=== PATIENT | female | born 1945 | race Caucasian/White ===

== ENCOUNTER → 2016-07-12 | Outpatient (CLI) | payer MEDICARE, OTHER ==
[~2016-07-12] MED LIST: CATHETER FLUSH 10 ML SYR IV PRN; REGADENOSON 0.4 MG/5 ML SYR (LEXISCAN) IV ONE
[2016-07-12 09:36] VITALS: BP 161/82
[2016-07-12 09:42] VITALS: BP 146/71
--- NOTE | 2016-07-14 09:09 | STRESS TEST ---
DATE OF SERVICE: 07/12/2016 RESTING AND POST REGADENOSON TECHNETIUM 99M TETROFOSMIN SPECT CT IMAGING ORDERING PHYSICIAN: Franny Choi APRN PRIMARY PHYSICIAN: Dr. Samosn. OTHER PHYSICIAN: Dr. Quintero. CLINICAL DIAGNOSIS: Chest discomfort, hypertension. Baseline images were carried out after injection of 10.53 mCi of technetium-99m tetrofosmin. This was followed by 0.4 mg regadenoson and 29.9 mCi of technetium-99m tetrofosmin for stress imaging. The electrocardiogram showed sinus rhythm at baseline. The electrocardiogram did not change significantly with the regadenoson infusion. There was subtle nonspecific ST abnormality. Rare isolated premature contractions were seen. She tolerated the procedure well. Review of images at rest and following stress does not indicate any significant perfusion defects consistent with myocardial ischemia or infarction. Gated images show normal global left ventricular systolic function with normal regional wall motion. Left ventricular ejection fraction is calculated to be 84%. Left ventricular end-diastolic volume is 41 mL. TID is absent (1.02). CONCLUSIONS: 1. No evidence of any significant myocardial ischemia or infarction on this study. 2. Normal regional wall motion. 3. Normal global left ventricular systolic function with a calculated ejection fraction of 84%. 4. Normal left ventricular cavity size. Job ID: [id number] DocumentID: [id number] Dictated Date: 07/13/2016 10:59:03 Feed Mixer Date: 07/13/2016 14:41:04 Dictated By: NYDIA QUINTERO MD, MA, FACP, FACC,
== END ==
LOC: CARD 07:23
PROVIDERS: ATTEND Nurse Practitioner Family
DX: I10 Essential (primary) hypertension (principal); E78.4 Other hyperlipidemia; I35.0 Nonrheumatic aortic (valve) stenosis; R07.89 Other chest pain
CPT/HCPCS: 78452; 93017

== ENCOUNTER → 2016-07-16 | Outpatient (CLI) | payer MEDICARE, OTHER ==
--- NOTE | 2016-07-19 07:08 | ECHOCARDIOGRAPHY REPORT ---
DATE OF SERVICE: 07/16/2016 CLINICAL DIAGNOSES: Chest pain, aortic stenosis. ORDERING PHYSICIAN: Dr. Garcia. PRIMARY PHYSICIAN: Dr. Samson. MEASUREMENTS: Aortic root 3.2. Left atrium 3.3. LV diameter diastolic 4.7. IVS thickness, diastolic 0.7. LVPW thickness, diastolic 1. DESCRIPTION: Two-dimensional echocardiography shows normal global left ventricular systolic function with normal regional wall motion. Aortic, mitral and tricuspid valve leaflets show good leaflet excursion. There is no significant pericardial effusion. Doppler imaging did not show significant valvular regurgitation but showed only trivial tricuspid regurgitation was seen. Pulmonary artery systolic pressure is estimated at approximately 25 mmHg. Mitral inflow is consistent with grade 1 diastolic dysfunction of left ventricle. Peak pressure gradient across the aortic valve is approximately 11 mmHg and a mean gradient of 6.5 mmHg with a valve area of approximately 2 cm sq. Doppler imaging indicates trivial aortic regurgitation. There is no evidence of significant intracardiac shunt on this transthoracic echocardiographic study. Inferior vena cava appears to be of normal size and exhibits inspiratory collapse. CONCLUSIONS: 1. Normal global left ventricular systolic function with ejection fraction approximately 60%. 2. Aortic valve sclerosis without significant aortic stenosis. 3. Trivial tricuspid and aortic regurgitation. 4. Pulmonary artery systolic pressure is estimated to be approximately 25 mmHg. Job ID: [id number] DocumentID: [id number] Dictated Date: 07/18/2016 16:07:21 Mechanical Engineering Lecturer Date: 07/18/2016 20:35:19 Dictated By: NYDIA GARCIA MD, MA, FACP, FACC,
== END ==
LOC: CARD 13:48
PROVIDERS: ATTEND Nurse Practitioner Family
DX: R07.89 Other chest pain (principal); I10 Essential (primary) hypertension; E78.4 Other hyperlipidemia; I35.0 Nonrheumatic aortic (valve) stenosis
CPT/HCPCS: 93306

== ENCOUNTER → 2016-08-02 | Outpatient (CLI) | payer MEDICARE, OTHER ==
--- NOTE | 2016-08-02 11:51 | Diagnostic Imaging Report ---
EXAMINATION: Bilateral lower extremity duplex venous ultrasound. TECHNIQUE: DVT protocol. Multiple sonographic images with color Doppler and waveform interrogation were performed of the lower extremity veins, bilaterally, with compression and augmentation maneuvers. INDICATION: Bilateral leg swelling. FINDINGS: The lower extremity veins from the common femoral veins to below the knee veins were examined with normal color-flow, compressibility and normal waveform demonstrated. The great saphenous vein bilaterally is patent. IMPRESSION: No evidence of DVT in either lower extremity. Dictated by: Dictated on workstation # [id number]
== END ==
LOC: RAD 11:01
PROVIDERS: ATTEND Nurse Practitioner Family
DX: M79.89 Other specified soft tissue disorders (principal); L53.9 Erythematous condition, unspecified
CPT/HCPCS: 93970

== ENCOUNTER → 2018-03-04 | Outpatient (CLI) | payer MEDICARE, OTHER ==
--- NOTE | 2018-03-04 14:17 | Diagnostic Imaging Report ---
INDICATION: Routine screening. COMPARISON: 09/20/2016 and 01/11/2016. TECHNIQUE: 2D and 3D bilateral screening mammography was performed with CAD. FINDINGS: Both breasts are heterogeneously dense, limiting the sensitivity of mammography. Benign calcifications are scattered throughout both breasts. The fibronodular parenchymal pattern appears stable. No dominant mass or malignant appearing microcalcifications are seen. The axillae are unremarkable. IMPRESSION: No mammographic features suspicious for malignancy are identified. ACR BI-RADS Category 2: Benign findings. Result letter will be mailed to the patient. Note: At least 10% of breast cancer is not imaged by mammography. Dictated by: Dictated on workstation # [id number]
== END ==
LOC: RAD 10:54
PROVIDERS: ATTEND Nurse Practitioner Family
DX: Z12.31 Encounter for screening mammogram for malignant neoplasm of breast (principal)
CPT/HCPCS: 77067

== ENCOUNTER → 2019-03-17 | Outpatient (CLI) | payer MEDICARE, OTHER ==
--- NOTE | 2019-03-17 15:16 | Diagnostic Imaging Report ---
INDICATION: Postmenopausal state, screening for osteoporosis. COMPARISON: None. FINDINGS: AP Spine L1-L4: [BMD (g/cm2): 1.231] [T-Score: 0.3] [Z-Score: 1.3] [BMD Previous: NA] [BMD % Change: NA] LT Hip Neck: [BMD (g/cm2): 0.878] [T-Score: -1.2] [Z-Score: 0.2] LT Hip Total: [BMD (g/cm2):1.047] [T-Score:0.3] [Z-Score: 1.4] [BMD Previous: NA] [BMD % Change: NA] RT Hip Neck: [BMD (g/cm2):0.938] [T-Score:-0.7] [Z-Score:0.6] RT Hip Total: [BMD (g/cm2):1.050] [T-score:0.3] [Z-Score:1.4] [BMD Previous:NA] [BMD % Change:NA] *Indicates significant change from prior examination based on 95% confidence level. World Health Organization criteria for BMD interpretation classify patients as Normal (T-score at or above -1.0), Osteopenic (T-score between -1.0 and -2.5) or Osteoporotic (T-score at or below -2.5). LIMITATIONS AND MODIFICATION: None. FRACTURE RISK (FRAX SCORE): The ten year probability of (%): Major Osteoporotic Fracture: [9.3] Hip Fracture: [1.8] IMPRESSION: 1. Osteopenia (Low bone mass). 2. Baseline examination. 3. See below National Osteoporosis Foundation guidelines on when to potentially initiate pharmacologic therapy. Based on the National Osteoporosis Foundation Guidelines, pharmacologic treatment should be initiated in any of the following, unless clinical conditions suggest otherwise: * Any patient with prior fragility fracture of the hip or vertebrae. A spine fracture indicates 5X risk for subsequent spine fracture and 2X risk for subsequent hip fracture. * Osteoporosis (T-score <-2.5). * Postmenopausal women and men age 50 and older with low bone mass/osteopenia (T-score between -1.0 and -2.5) by DXA and 10-year major osteoporotic fracture greater than 20% or a 10-year probability of hip fracture greater than 3%. These fracture risks are supplied above in the FRAX score, if applicable. * Clinician judgment and/or patient preferences may indicate treatment for people with 10-year fracture probabilities above or below these levels. Dictated by: Dictated on workstation # [id number]
--- NOTE | 2019-03-17 16:15 | Diagnostic Imaging Report ---
Indication: Routine screening. Comparison is made with prior mammograms from 03/04/2018 and 01/21/2017. 2-D and 3-D bilateral screening mammography was performed with CAD. Both breasts remain heterogeneously dense, limiting the sensitivity of mammography. Fibronodular parenchymal pattern remains stable. Scattered benign calcifications are again noted. No dominant mass or malignant appearing microcalcifications are seen. Axillae are unremarkable. IMPRESSION: BI-RADS Category 2 No mammographic features suspicious for malignancy are identified. ACR BI-RADS Category 2: Benign findings. Result letter will be mailed to the patient. Note: At least 10% of breast cancer is not imaged by mammography. Dictated by: Dictated on workstation # [id number]
== END ==
LOC: RAD 12:15
PROVIDERS: ATTEND Family Medicine
DX: Z12.31 Encounter for screening mammogram for malignant neoplasm of breast (principal); Z13.820 Encounter for screening for osteoporosis; M85.89 Other specified disorders of bone density and structure, multiple sites; Z78.0 Asymptomatic menopausal state
CPT/HCPCS: 77067; 77080

== ENCOUNTER 2019-10-19 14:14 | Outpatient (CLI) | payer MEDICARE, OTHER | END 2019-10-19 14:35 | disposition home or self-care (01) | LOC: SLEEP 14:14 | PROVIDERS: ATTEND Otolaryngology Otolaryngology/Facial Plastic Surgery | DX: G47.33 Obstructive sleep apnea (adult) (pediatric) (principal); G47.00 Insomnia, unspecified; I10 Essential (primary) hypertension ==

== ENCOUNTER → 2020-04-25 | Outpatient (CLI) | payer MEDICARE, OTHER ==
--- NOTE | 2020-04-25 16:06 | Diagnostic Imaging Report ---
INDICATION: Routine screening. COMPARISON: 03/17/2019 and 03/04/2018. TECHNIQUE: 2D and 3D bilateral screening mammography was performed with CAD. FINDINGS: Both breasts are heterogeneously dense, limiting the sensitivity of mammography. Scattered benign-appearing calcifications are again noted. There are multiple benign nodules in both breasts which appear to be stable. No spiculated mass or malignant appearing microcalcifications are seen. The axillae are unremarkable. IMPRESSION: No mammographic features suspicious for malignancy are identified. ACR BI-RADS Category 2: Benign findings. Result letter will be mailed to the patient. Note: At least 10% of breast cancer is not imaged by mammography. Dictated by: Dictated on workstation # [id number]
== END ==
LOC: RAD 10:07
PROVIDERS: ATTEND Family Medicine
DX: Z12.31 Encounter for screening mammogram for malignant neoplasm of breast (principal)
CPT/HCPCS: 77063; 77067

== ENCOUNTER → 2020-08-26 | Outpatient (CLI) | payer MEDICARE, OTHER | LOC: CARD 10:30 | PROVIDERS: ATTEND Nurse Practitioner Family | DX: I08.0 Rheumatic disorders of both mitral and aortic valves (principal); I10 Essential (primary) hypertension | CPT/HCPCS: 93306 ==

== ENCOUNTER → 2021-03-21 | Outpatient (CLI) | payer MEDICARE, OTHER ==
--- NOTE | 2021-03-21 13:32 | Diagnostic Imaging Report ---
INDICATION: Postmenopausal. COMPARISON: 03/17/2019. FINDINGS: The bone mineral density of the spine, hips, and femoral necks was measured. The total T-score for the spine is 1.1. On the prior exam, the T-score was 0.3. The total T-score for the left hip is 0.7 and for the right 0.5. On the prior exam, the T-score for each hip was 0.3. The T-score for each femoral neck is -1.0. On the prior study, the T-score for the left femoral neck was -1.2 and for the right femoral neck -0.7. AP Spine L1-L4: [BMD (g/cm2): 1.329] [T-Score: 1.1] [Z-Score: 2.1] [BMD Previous: 1.231] [BMD % Change: 8.0] LT Hip Neck: [BMD (g/cm2): 0.901] [T-Score: -1.0] [Z-Score: 0.4] LT Hip Total: [BMD (g/cm2):1.098] [T-Score:0.7] [Z-Score: 1.9] [BMD Previous: 1.047] [BMD % Change: 4.9] RT Hip Neck: [BMD (g/cm2):0.896] [T-Score:-1.0] [Z-Score:0.4] RT Hip Total: [BMD (g/cm2):1.066] [T-score:0.5] [Z-Score:1.6] [BMD Previous:1.050] [BMD % Change:1.5] *Indicates significant change from prior examination based on 95% confidence level. World Health Organization criteria for BMD interpretation classify patients as Normal (T-score at or above -1.0), Osteopenic (T-score between -1.0 and -2.5) or Osteoporotic (T-score at or below -2.5). LIMITATIONS AND MODIFICATION: None. FRACTURE RISK (FRAX SCORE): The ten year probability of (%): Major Osteoporotic Fracture: [NA] Hip Fracture: [NA] IMPRESSION: 1. There has been a slight increase in the bone mineral density of the spine, the hips, and the left femoral neck. All of the T-scores are within normal limits. 2. There is a slight decrease in the bone mineral density of the right femoral neck. However, the T-score is still at the lowest end of normal. 3. See below National Osteoporosis Foundation guidelines on when to potentially initiate pharmacologic therapy. Based on the National Osteoporosis Foundation Guidelines, pharmacologic treatment should be initiated in any of the following, unless clinical conditions suggest otherwise: * Any patient with prior fragility fracture of the hip or vertebrae. A spine fracture indicates 5X risk for subsequent spine fracture and 2X risk for subsequent hip fracture. * Osteoporosis (T-score <-2.5). * Postmenopausal women and men age 50 and older with low bone mass/osteopenia (T-score between -1.0 and -2.5) by DXA and 10-year major osteoporotic fracture greater than 20% or a 10-year probability of hip fracture greater than 3%. These fracture risks are supplied above in the FRAX score, if applicable. * Clinician judgement and/or patient preferences may indicate treatment for people with 10-year fracture probabilities above or below these levels. Dictated by: Dictated on workstation # [id number]
== END ==
LOC: RAD 11:00
PROVIDERS: ATTEND Family Medicine
DX: Z12.31 Encounter for screening mammogram for malignant neoplasm of breast (principal); Z78.0 Asymptomatic menopausal state
CPT/HCPCS: 77080

== ENCOUNTER → 2021-04-26 | Outpatient (CLI) | payer MEDICARE, OTHER ==
--- NOTE | 2021-04-26 11:29 | Diagnostic Imaging Report ---
INDICATION: Routine screening. Comparison is made with prior mammogram to 04/25/2020 and 03/17/2019. 2-D and 3-D bilateral screening mammography was performed with CAD. Both breasts are heterogeneously dense, limiting the sensitivity of mammography. Benign calcifications in both breast are again noted. Benign nodule in the outer left breast posterior depth is stable. No spiculated mass or malignant-appearing microcalcifications are seen. Axillae are unremarkable. IMPRESSION: BI-RADS Category 2 No mammographic features suspicious for malignancy are identified. ACR BI-RADS Category 2: Benign findings. Result letter will be mailed to the patient. Note: At least 10% of breast cancer is not imaged by mammography. Dictated by: Dictated on workstation # [id number]
== END ==
LOC: RAD 11:00
PROVIDERS: ATTEND Family Medicine
DX: Z12.31 Encounter for screening mammogram for malignant neoplasm of breast (principal); M81.0 Age-related osteoporosis without current pathological fracture
CPT/HCPCS: 77063; 77067

== ENCOUNTER 2022-01-29 13:39 | Outpatient (RCR) | payer MEDICARE, OTHER | END 2022-01-29 14:26 | disposition home or self-care (01) | PROVIDERS: ATTEND Nurse Practitioner Family | DX: N39.41 Urge incontinence (principal); I10 Essential (primary) hypertension ==

== ENCOUNTER → 2023-01-09 | Outpatient (CLI) | payer MEDICARE, OTHER | LOC: CARD 11:12 | PROVIDERS: ATTEND Internal Medicine Cardiovascular Disease | DX: I08.3 Combined rheumatic disorders of mitral, aortic and tricuspid valves (principal) ==